=== PATIENT | female | born 1975 | race African-American/Black ===

== ENCOUNTER 2017-04-26 18:39 | Emergency (ER) | payer OTHER ==
[2017-04-26] MEDS ORDERED: NORMAL SALINE 1000 ML 1,000 ML IV ONE (20:23)
--- NOTE | 2017-04-26 20:27 | ER Document Report ---
ED General - General Chief Complaint: Blood Pressure Problem Stated Complaint: BLURRED VISION/POSSIBLE HIGH BLOOD PRESSURE Time Seen by Provider: 04/26/17 20:00 Notes: Patient is a 41-year-old female with past medical history of breast cancer in the remote past, no history of active chemotherapy or radiation therapy who presents with acute onset of vertigo and lightheadedness while at work. Patient states that she returned from her lunch break when she sat down at her desk she was unable to focus on her keyboard or her computer screen. States that the symptoms got progressively worse shortly after starting but now have completely resolved without intervention. States that the total symptom duration was approximately 20 minutes. Denies any associated weakness, numbness , dysarthria, aphasia, or headache during this episode. She has no history of similar symptoms in the past. Denies any recent medication changes. States she has been eating and drinking adequately. She denies any chest pain or shortness of breath. At time of my evaluation patient is asymptomatic and is requesting to go home. TRAVEL OUTSIDE OF THE [place] IN LAST 30 DAYS: No - Related Data Allergies/Adverse Reactions: silver [From [employer]] Allergy (Verified 04/26/17 20:11) Home Medications: Current Home Medications Amlodipine Besylate 0.5 tab PO DAILY 04/26/17 [History] Past Medical History - General Information source: Patient - Social History Smoking Status: Never Smoker Chew tobacco use (# tins/day): No Frequency of alcohol use: None Drug Abuse: None Lives with: Spouse/Significant other Family History: Reviewed & Not Pertinent - Past Medical History Cardiac Medical History: Reports: Hx Hypertension Renal/ Medical History: Denies: Hx Peritoneal Dialysis Past Surgical History: Reports: Hx Breast Surgery - Breast reduction, Hx Mastectomy - R breast - Immunizations Hx Diphtheria, Pertussis, Tetanus Vaccination: - unknown Review of Systems - Review of Systems Notes: Constitutional: Negative for fever. HENT: Negative for sore throat. Eyes: Negative for visual changes. Cardiovascular: Negative for chest pain. Respiratory: Negative for shortness of breath. Gastrointestinal: Negative for abdominal pain, vomiting or diarrhea. Genitourinary: Negative for dysuria. Musculoskeletal: Negative for back pain. Skin: Negative for rash. Neurological: Negative for headaches, weakness or numbness. 10 point ROS negative except as marked above and in HPI. Physical Exam - Vital signs Vitals: Temp Pulse Resp BP Pulse Ox 98.7 F 88 16 159/105 H 97 04/26/17 18:45 04/26/17 18:45 04/26/17 18:45 04/26/17 18:45 04/26/17 18:45 Interpretation: Hypertensive Notes: PHYSICAL EXAMINATION: GENERAL: Well-appearing, well-nourished and in no acute distress. HEAD: Atraumatic, normocephalic. EYES: Pupils equal round and reactive to light, extraocular movements intact, sclera anicteric, conjunctiva are normal. ENT: nares patent, oropharynx clear without exudates. Moist mucous membranes. NECK: Normal range of motion, supple without lymphadenopathy LUNGS: Breath sounds clear to auscultation bilaterally and equal. No wheezes rales or rhonchi. HEART: Regular rate and rhythm without murmurs ABDOMEN: Soft, nontender, normoactive bowel sounds. No guarding, no rebound. No masses appreciated. EXTREMITIES: Normal range of motion, no pitting or edema. No cyanosis. NEUROLOGICAL: Face symmetric. Tongue protrudes midline. Extraocular motions intact. Pupils are 2 mm and equally reactive. Normal speech, normal gait. 5 out of 5 strength in both the distal and proximal upper and lower extremities bilaterally. Sensation is grossly intact throughout. Finger to nose testing normal. Pronator drift normal. PSYCH: Normal mood, normal affect. SKIN: Warm, Dry, normal turgor, no rashes or lesions noted. Course - Re-evaluation Re-evalutation: 04/26/17 20:26 Presentation of vertigo that appears most consistent with a benign peripheral vertigo. Patient has no abnormal findings on exam. Normal cerebellar testing, steady even gait. Able to walk on heels and toes. Normal proprioception. Patient is not an elevated risk for a cerebellar infarction given age, absence of significant risk factors. Moreover she has absolutely no symptoms at time of my assessment making a acute cerebellar infarction highly unlikely. Patient' s symptoms had completely resolved by the time of my assessment. Suspect likely peripheral vertigo versus dehydration. I do not believe neurologic imaging is indicated at this time based on physical examination and clinical history. At this time will discharge with return precautions and follow-up recommendations. Verbal discharge instructions given a the bedside and opportunity for questions given. Medication warnings reviewed. Patient is in agreement with this plan and has verbalized understanding of return precautions and the need for primary care follow-up in the next 24-72 hours. - Vital Signs Vital signs: Temp Pulse Resp BP Pulse Ox 98.7 F 88 21 H 120/73 98 04/26/17 18:45 04/26/17 18:45 04/26/17 22:31 04/26/17 22:31 04/26/17 22:31 - Laboratory Result Diagrams: 04/26/17 20:58 Discharge - Discharge Clinical Impression: Vertigo Condition: Good Disposition: HOME, SELF-CARE Additional Instructions: You were seen today for lightheadedness/dizziness. The exact cause of your symptoms is unclear but your workup here is reassuring without any concerning findings. Please follow closely with your primary care physician in the next 1- 3 days. Return if you pass out, have additional episodes of lightheadedness, develop weakness/numbness, have persistent vomiting, chest pain, shortness of breath or any other symptoms that are concerning to you
[2017-04-26 21:35] LABS: ANION GAP 10 (5-19); BLOOD UREA NITROGEN 11 mg/dL (7-20); CALCIUM 8.9 mg/dL (8.4-10.2); CARBON DIOXIDE 24 mmol/L (22-30); CHLORIDE 107 mmol/L (98-107); CREATININE RESULT 0.75 mg/dL (0.52-1.25); GLUCOSE 106 mg/dL (75-110); POTASSIUM 4.5 mmol/L (3.6-5.0); SODIUM 141.1 mmol/L (137-145)
[2017-04-26 22:43] VITALS: BP 120/73
== END 2017-04-26 23:57 | disposition home or self-care (01) ==
LOC: ER 18:39
DX: R42 Dizziness and giddiness (principal); I10 Essential (primary) hypertension; Z85.3 Personal history of malignant neoplasm of breast; Z88.8 Allergy status to other drugs, medicaments and biological substances
CPT/HCPCS: 36591; 99283; 96360; 36415; 84703; 80048; J7030